=== PATIENT | female | born 1945 | race Caucasian/White ===

== ENCOUNTER 2022-01-30 08:54 | Day surgery (SDC) | payer OTHER ==
--- NOTE | 2022-01-28 12:39 | EKG ---
Test Date: 2022-01-28 Test Time: 11:45:31 Vp Of Product: DONAVAN MEASUREMENT RESULTS: Intervals: Rate: 87 [place]: 140 QRSD: 76 QT: 410 QTc: 493 [place]: P: 45 [place]: 140 QRS: 51 T: 58 INTERPRETIVE STATEMENTS: Sinus bradycardia with frequent premature ventricular complexes Prolonged QT Abnormal ECG Compared to ECG 04/07/2011 15:55:45 Ventricular premature complex(es) now present Prolonged QT interval now present Sinus rhythm no longer present Electronically Signed On 01-28-22 12:38:50 CDT by Ambrocio Zhang
[2022-01-30] MEDS ORDERED: Ringers Lactate 1,000 ML IV ONE (09:17)
[2022-01-30] MEDS ORDERED: OFLOXACIN OPH 0.3%-5 ML BTL ONE (10:03)
[2022-01-30] MEDS ORDERED: propofoL 200 MG/20 ML VIAL IV ONE (10:51)
[2022-01-30] MEDS ORDERED: LIDOCAINE 1% MPF 5 ML VIAL ONE (10:51)
[2022-01-30] MEDS ORDERED: MIDAZOLAM HCL 2 MG/2 ML INJ ONE (10:52)
--- NOTE | 2022-01-30 11:29 | P.OP ---
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 Details of operation: The patient was brought to the operating room and placed under general anesthesia via inhalational mask. The right ear was visualized under the operating microscope with assistance of an ear speculum. A myringotomy incision was made in the anterior-inferior quadrant and no fluid was aspirated from the middle ear space. A Paparella type I tube was positioned across the incision using an alligator forcep and pick. Ofloxacin drops were instilled into the middle ear and a cottonball was placed at the meatus. The pr ocedure was concluded and the patient was awakened from anesthesia and transported to the recovery room in stable condition. Disposition the patient will be discharged home later today in the care of their family and follow-up with Dr. Austin's office in approximately 1 to 2 weeks.
[2022-01-30 11:40] VITALS: O2SAT 100
[2022-01-30 12:33] VITALS: BP 92/63; TEMP 96.1
== END 2022-01-30 12:50 | disposition home or self-care (01) ==
LOC: OR 08:54
PROVIDERS: ATTEND Otolaryngology
PROC: 099570Z Drainage of Right Middle Ear with Drainage Device, Via Natural or Artificial Opening (ICD-10-PCS; principal; 2022-01-30 09:45)
DX: H90.A31 Mixed conductive and sensorineural hearing loss, unilateral, right ear with restricted hearing on the contralateral side (principal)
CPT/HCPCS: 93005; 69436; J2704; J2250; J7120

== ENCOUNTER 2023-09-24 06:51 | Day surgery (SDC) | payer OTHER ==
[2023-09-22 11:29] LABS: Absolute Eosinophils 0.1 K/uL (0-0.5); Absolute Lymphocytes (CBC) 1.4 K/uL (0.7-4.9); Absolute Monocytes 0.5 K/uL (0.1-1.3); Absolute Neutrophil 3.4 K/uL (1.8-8.0); Basophils % 0.7 % (0-1.3); Eosinophils % 1.6 % (0-4.4); Hematocrit 37.5 % (36.0-45.0); Hemoglobin 12.6 g/dL (12.0-15.0); Lymphocytes % 25.9 % (15.3-44.8); MCH 33.9 pg (27.0-35.0); MCHC 33.7 g/dL (32.0-36.0); MCV 100.6 fL (80-100); MPV 9.7 fL (7.6-11.3); Monocytes % 8.8 % (3.3-12.3); Platelets 192 thou/uL (152-406); RBC Red Blood Cell Count 3.73 M/uL (3.86-4.86); Red Cell Distribution Width 12.8 % (12.1-15.2)
[2023-09-22 11:37] LABS: PT Prothrombin Time 15.7 SECONDS (9.5-12.5); PTT, Activated Partial Thromb 41.1 SECONDS (24.3-36.9); Protime INR 1.44
[2023-09-22 11:41] LABS: Anion Gap 7.1 mEq/L (5.0-15.0); Potassium 4.1 mEq/L (3.5-5.1)
[2023-09-24] MEDS: Ringers Lactate 1,000 ML IV ONE (07:25)
[2023-09-24] MEDS ORDERED: ROCURONIUM 50 MG/5 ML VIAL IV ONE (08:13)
[2023-09-24] MEDS ORDERED: FENTANYL CITR 100 MCG/2 ML ONE (08:13)
[2023-09-24] MEDS ORDERED: propofoL 200 MG/20 ML VIAL IV ONE (08:13)
[2023-09-24] MEDS ORDERED: LIDOCAINE 2% MPF 5 ML VIAL ONE (08:13)
[2023-09-24] MEDS ORDERED: ONDANSETRON 4 MG/2 ML VIAL ONE (08:13)
[2023-09-24] MEDS ORDERED: SUCCINYLCHOLINE 20 MG/ML (10 ML) IV ONE (08:21)
[2023-09-24] MEDS: BUPIVACAINE 0.5% PF 10 ML VIAL ONE (08:45)
[2023-09-24] MEDS ORDERED: EPHEDRINE SULF 50 MG/ML VIAL ONE (08:47)
[2023-09-24] MEDS ORDERED: NS 0.9% VIAL 10 ML ONE (08:55)
[2023-09-24] MEDS: Xeomin 100 Unit Vial IM ONE (09:00)
[2023-09-24] MEDS ORDERED: NEOSTIGMINE 1 MG/ML -10 ML VIAL ONE (09:03)
[2023-09-24] MEDS ORDERED: GLYCOPYRROLATE 0.2 MG/ML SYR ONE (09:03)
[2023-09-24] MEDS ORDERED: EPINEPHrine 1 MG/10 ML SYR ONE (09:05)
[2023-09-24] MEDS: EPINEPHRINE 1 MG/ML VIAL ONE (09:06)
--- NOTE | 2023-09-24 09:13 | P.OP ---
Outsole Compressor: NONE,NONE Preoperative diagnosis: lichen planus, cricopharyngeal spasm, dysphagia Postoperative diagnosis: same Primary procedure: oral biopsy, left inferior gingivobuccal sulcus Secondary procedure: rigid esophagoscopy with submucosal injection of Xeomin Anesthesia: general Estimated blood loss: 5ml Specimen: L inferior GB sulcus Operative Technique: Patient was brought to the operating room placed under general anesthesia via oral endotracheal tube. The oral cavity was examined and there was diffuse evidence of lichen planus. Additionally there was an area of shallow ulceration of the left inferior buccal sulcus which was approximately 0.8 x 1.2 cm and consistent with patient's prior office exam findings with no significant improvement. The area was injected with local anesthetic to aid in postoperative pain control forceps and scissors were used to perform a biopsy of this tissue. The resulting area of moderate oozing was initially controlled with packing of a gauze sponge into the GB sulcus while patient was turned to the other planned procedures. A silicone mouthguard was applied over the patient's upper dentition and a small cervical rigid esophagoscope was passed through the oral cavity and into the esophageal introitus. The scope was passed to its full length while the mucosa of the esophagus was directly evaluated. There were no significant mucosal ulcerations though there was evidence of some white esophageal/stomach contents noted in the lower portion of the esophagus. After successful rigid esophagoscopy, the esophagoscope remained in place at the level of the cricopharyngeus. Xeomin botulinum toxin was reconstituted with 1.4 mL of sterile preservative-free saline resulting in a concentration of 7 units per 0.1 mL of solution. The full amount of solution was drawn up into a syringe and connected to a side kick rigid injection needle. 3 injections of 0.1 mL solution were placed with in the posterior aspect of the cricopharyngeus muscle. Minimal bleeding was noted. The needle and rigid esophagoscope were carefully withdrawn. The rubber tooth guard was removed and the oral cavity was reexami michele. After removal of the gauze sponge, the biopsy site remained mildly oozy and spatula tip Bovie electrocautery was judiciously applied to the bleeding areas to aid in hemostasis which was successful. Complications: None Transferred to: Recovery Room Condition: Good
[2023-09-24 11:03] VITALS: BP 112/60; TEMP 97.2; O2SAT 99
--- NOTE | 2023-09-24 17:31 | EKG ---
Test Date: 2023-09-22 Test Time: 10:57:50 Mica Plate Layer: JOVAN MEASUREMENT RESULTS: Intervals: Rate: 113 [place]: 140 QRSD: 68 QT: 214 QTc: 293 [place]: P: 43 [place]: 140 QRS: 52 T: 77 INTERPRETIVE STATEMENTS: Sinus tachycardia Low voltage QRS Borderline ECG Compared to ECG 01/28/2022 11:45:31 Low QRS voltage now present Sinus bradycardia no longer present Prolonged QT interval no longer present Electronically Signed On 09-24-23 17:24:03 CDT by Junaid Steve
== END 2023-09-24 10:55 | disposition home or self-care (01) ==
LOC: OR 06:51
PROVIDERS: ATTEND Otolaryngology
PROC: 0DJ08ZZ Inspection of Upper Intestinal Tract, Via Natural or Artificial Opening Endoscopic (ICD-10-PCS; principal; 2023-09-24 08:15)
DX: J39.2 Other diseases of pharynx (principal); K12.1 Other forms of stomatitis; R13.10 Dysphagia, unspecified; L43.9 Lichen planus, unspecified
CPT/HCPCS: 43192; 93005; 85025; 80048; 36415; 85610; 88305; 85730; A4216; J2704; J2710; J2001; J3010; J0171; J2405; J0588; J7120; 88304

== ENCOUNTER 2025-04-30 07:15 | Day surgery (SDC) | payer OTHER ==
[2025-04-27 16:24] LABS: Absolute Lymphocytes (CBC) 2.0 K/uL (0.7-4.9); Hematocrit 40.2 % (36.0-45.0); Hemoglobin 13.4 g/dL (12.0-15.0); MCH 33.4 pg (27.0-35.0); MCHC 33.4 g/dL (32.0-36.0); MCV 100.2 fL (80-100); MPV 9.7 fL (7.6-11.3); Nucleated RBC Absolute Count 0.0 (0-0); Nucleated Red Blood Cells % 0.0 % (0-0); RBC Red Blood Cell Count 4.01 M/uL (3.86-4.86); White Blood Count 5.50 thou/uL (4.3-10.9)
[2025-04-27 16:29] LABS: PT Prothrombin Time 11.1 SECONDS (10-13.0); PTT, Activated Partial Thromb 30.7 SECONDS (27.2-37.4); Protime INR 0.98
[2025-04-27 16:32] LABS: Anion Gap 7.9 mEq/L (5.0-15.0); BUN Blood Urea Nitrogen 22.0 mg/dL (7-18); Glucose Level 93.0 mg/dL (74-106); Potassium 3.9 mEq/L (3.5-5.1)
--- NOTE | 2025-04-27 19:01 | RAD REPORT ---
EXAMINATION: TWO VIEW CHEST XR CLINICAL INDICATION: Female, 79 years old. Hypertension. Pre-op pending heart catheterization TECHNIQUE: 2 view radiographs of the chest were performed. COMPARISON: 04/06/2011 FINDINGS: The lungs are well inflated and clear. No pneumothorax or sizable effusion. The heart is normal in si ze. Mediastinal contours are unremarkable. IMPRESSION: No acute or significant abnormalities.
[2025-04-30] MEDS ORDERED: NA CHLORIDE 0.9% 500 ML ONE (07:52)
[2025-04-30] MEDS: ASPIRIN 81 MG CHEWABLE TABLET ONE (07:52)
[2025-04-30] MEDS ORDERED: FENTANYL CITR 100 MCG/2 ML ONE (07:57)
[2025-04-30] MEDS ORDERED: MIDAZOLAM HCL 2 MG/2 ML INJ ONE (07:57)
[2025-04-30] MEDS ORDERED: HEPA 1000U/500MLS 2,000 UNIT/1,000 ML BAG IV ONE (08:03)
[2025-04-30] MEDS ORDERED: HEPARIN 10,000 UNIT/10 ML VIAL IV ONE (08:03)
[2025-04-30] MEDS ORDERED: LIDOCAINE 1% 20 ML MDV ONE (08:03)
[2025-04-30 08:04] VITALS: TEMP 98
[2025-04-30] MEDS ORDERED: ATROPINE SULF 1 MG/10 ML SYR IV ONE (08:04)
[2025-04-30] MEDS ORDERED: HEPARIN 5000 UNIT/ML 1 ML VIAL ONE (08:04)
[2025-04-30] MEDS ORDERED: TICAGRELOR 90 MG TABLET PO ONE (08:04)
[2025-04-30] MEDS ORDERED: CLOPIDOGREL 75 MG TABLET ONE (08:04)
[2025-04-30 12:07] VITALS: BP 85/47; O2SAT 97
--- NOTE | 2025-05-01 03:50 | OP ---
Date of Procedure: 04/30/2025 Surgeon: Afshin Boyd Procedure Performed: Selective coronary angiogram. Indication For Procedure: Abnormal cardiac output. Complications: None. Estimated Blood Loss: Less than 50 cc. Access: Right radial, closed by TR band. Sedation Time: 20 minutes with 1 of Versed and 25 of fentanyl. Description Of Procedure: After risks, benefits, and alternatives were explained to the patient, the patient agreed to proceed with procedure and signed informed consent. The patient was brought back to the landscape laborer, prepped and draped in sterile fashion. Time-out was performed. Sedation was admini stered. Next, right radial access was obtained using ultrasound-guided micropuncture technique. Tig er 4 catheter was advanced over a J-wire to the aortic root. Selective angiogram was done using the same catheter. At the end of procedure, catheter was removed over a J-wire. Sheath was removed. TR band was applied. Hemostasis achieved and the patient was moved back to recovery in stable conditio n. Findings: 1. Left main, normal. 2. LAD, normal. 3. Left circ, normal. 4. RCA, normal. Assessment: Normal coronaries. Plan: To continue medical management. ALINA/IAIN Voice ID: [id number] Report ID: [id number]
== END 2025-04-30 11:30 | disposition home health service (06) ==
LOC: PRE 07:15 → CCL 11:30
PROVIDERS: ATTEND Internal Medicine Interventional Cardiology
DX: R94.39 Abnormal result of other cardiovascular function study (principal); R07.89 Other chest pain; I34.0 Nonrheumatic mitral (valve) insufficiency; I35.1 Nonrheumatic aortic (valve) insufficiency; I48.0 Paroxysmal atrial fibrillation; I10 Essential (primary) hypertension; Z79.899 Other long term (current) drug therapy; Z88.5 Allergy status to narcotic agent
CPT/HCPCS: 93005; 85025; 80048; 36415; 85610; 82947; 85730; 71046; 93454; 76937; C1893; Q9966; J2003; J2250; J3010; J1644; J7040; 99152; 99153; J0461